=== PATIENT | female | born 1995 | race African-American/Black ===

== ENCOUNTER 2018-03-10 16:11 | Emergency (ER) | payer OTHER ==
[~2018-03-10] VITALS: Ht 170.2 cm; Wt 73.0 kg
[2018-03-10] MEDS ORDERED: IBUPROFEN 600MG TABLET PO ONE (19:45)
[2018-03-10 20:18] VITALS: BP 137/93
== END 2018-03-10 20:18 | disposition home or self-care (01) ==
LOC: ER 16:11
DX: J02.9 Acute pharyngitis, unspecified (principal); F12.10 Cannabis abuse, uncomplicated
CPT/HCPCS: 81025; 99283